=== PATIENT | male | born 1995 | race Two or more races ===

== ENCOUNTER 2022-09-02 05:52 | Emergency (ER) | payer SELFPAY ==
[~2022-09-02] VITALS: Ht 182.9 cm; Wt 85.0 kg
[2022-09-02 05:55] VITALS: BP 141/91
== END 2022-09-02 09:21 | disposition left against medical advice (07) ==
LOC: EDBD → M ED 05:52
DX: Z53.21 Procedure and treatment not carried out due to patient leaving prior to being seen by health care provider (principal)

== ENCOUNTER 2022-09-02 10:40 | Inpatient (IN) | payer MEDICAID, OTHER, SELFPAY ==
[~2022-09-02] VITALS: Ht 182.9 cm; Wt 76.8 kg
[2022-09-02] MEDS ORDERED: LORazepam 2 MG/ML 1ML VIAL IV STA ×2 (11:04→16:12)
[2022-09-02 11:20] LABS: HEMATOCRIT 38.5 % (42.0-52.0); HEMOGLOBIN 13.4 g/dl (13.5-17.5); MEAN CORPUSCULAR HEMOGLOBIN 30.3 pg (27.0-33.0); MEAN CORPUSCULAR HGB CONC 34.8 g/dl (32.0-36.5); MEAN CORPUSCULAR VOLUME 87.1 fl (80.0-96.0); PLATELET COUNT, AUTOMATED 212 10^3/uL (150-450); RED BLOOD COUNT 4.42 10^6/uL (4.30-6.10); WHITE BLOOD COUNT 14.7 10^3/uL (4.0-10.0)
[2022-09-02 11:44] LABS: ETHYL ALCOHOL (ETHANOL) 0.005 % (0.000-0.010)
[2022-09-02 11:45] LABS: ACETAMINOPHEN LEVEL < 2.0 UG/ML (10.0-20.0); SALICYLATE LEVEL < 3.0 MG/DL (<30)
[2022-09-02 11:46] LABS: ALBUMIN 3.5 G/DL (3.2-5.2); ALKALINE PHOSPHATASE 81 U/L (46-116); ALT/SGPT 55 U/L (7.0-40); AST/SGOT 233 U/L (<34); BILIRUBIN,DIRECT 0.3 MG/DL (<0.4); BILIRUBIN,TOTAL 0.9 MG/DL (0.3-1.2); BLOOD UREA NITROGEN 37 MG/DL (9-23); CALCIUM LEVEL 8.5 MG/DL (8.5-10.1); CARBON DIOXIDE LEVEL 24 MMOL/L (20-31); CHLORIDE LEVEL 103 MMOL/L (98-107); CREATININE FOR GFR 1.23 MG/DL (0.70-1.30); GLOMERULAR FILTRATION RATE > 60.0 (>60); GLUCOSE, FASTING 113 MG/DL (60-100); POTASSIUM SERUM 3.9 MMOL/L (3.5-5.1); SODIUM LEVEL 139 MMOL/L (136-145); TOTAL PROTEIN 6.3 G/DL (5.7-8.2)
[2022-09-02 11:48] LABS: THYROID STIMULATING HORMONE 0.481 uIU/ML (0.55-4.78)
[2022-09-02] MEDS ORDERED: NS 1,000 ML IV ONE (11:50)
[2022-09-02] MEDS ORDERED: LIDOCAINE 2% 5ML JELLY UROJET TOP ONE (12:10)
[2022-09-02 13:06] LABS: AMPHETAMINES LEVEL URINE NEGATIVE (NEGATIVE); BARBITURATES URINE NEGATIVE (NEGATIVE); BENZODIAZEPINES URINE NEGATIVE (NEGATIVE); METHADONE URINE NEGATIVE (NEGATIVE); OPIATES URINE NEGATIVE (NEGATIVE); PHENCYCLIDINE URINE NEGATIVE (NEGATIVE)
[2022-09-02 13:07] LABS: CANNABINOIDS URINE POSITIVE (NEGATIVE); COCAINE METABOLITE URINE POSITIVE (NEGATIVE)
[2022-09-02] MEDS ORDERED: HOME MED LIST COMPLETE! XX SCH (13:55)
[2022-09-02] MEDS: NS 1,000 ML IV SCH ×5 (14:00→22:44)
[2022-09-02 15:45] VITALS: BP 105/66
[2022-09-02 16:06] LABS: CPK CREATINE PHOSPHOKINASE > 7800 U/L (46-171)
[2022-09-02] MEDS: HEPARIN SOD (PORCINE) 5000UNITS/ML 1ML VIAL/SYRINGE SC SCH ×2 (16:46→22:00)
[2022-09-02] MEDS ORDERED: HALOPERIDOL 5MG/ML 1ML VIAL IM PRN (17:10)
[2022-09-02 17:15] VITALS: BP 112/72
[2022-09-02 17:44] LABS: MAGNESIUM LEVEL 1.7 MG/DL (1.8-2.4); PHOSPHORUS LEVEL 3.3 MG/DL (2.5-4.9)
[2022-09-02 18:41] LABS: HEPATITIS B CORE ANTIBODY IGM NEGATIVE (NEGATIVE); HEPATITIS B SURFACE ANTIBODY NEGATIVE (POSITIVE); HEPATITIS B SURFACE ANTIGEN NEGATIVE (NEGATIVE)
[2022-09-02] MEDS: LORazepam 2 MG/ML 1ML VIAL IV PRN (19:30)
[2022-09-02] MEDS: HALOPERIDOL 5MG/ML 1ML VIAL IM PRN (19:34)
[2022-09-02 20:00] VITALS: BP 109/56
[2022-09-03] VITALS: BP 110/64
[2022-09-03] MEDS: LORazepam 2 MG/ML 1ML VIAL IV PRN (01:13)
[2022-09-03 04:00] VITALS: BP 112/61
[2022-09-03] MEDS: HEPARIN SOD (PORCINE) 5000UNITS/ML 1ML VIAL/SYRINGE SC SCH ×3 (06:00→22:00)
[2022-09-03] MEDS: HALOPERIDOL 5MG/ML 1ML VIAL IM PRN (06:01)
[2022-09-03] MEDS: NS 1,000 ML IV SCH ×5 (06:08→22:25)
[2022-09-03 08:00] VITALS: BP 124/72
[2022-09-03 08:00] LABS: HEMATOCRIT 36.1 % (42.0-52.0); HEMOGLOBIN 12.1 g/dl (13.5-17.5); MEAN CORPUSCULAR HEMOGLOBIN 30.3 pg (27.0-33.0); MEAN CORPUSCULAR HGB CONC 33.5 g/dl (32.0-36.5); MEAN CORPUSCULAR VOLUME 90.3 fl (80.0-96.0); PLATELET COUNT, AUTOMATED 154 10^3/uL (150-450); WHITE BLOOD COUNT 5.6 10^3/uL (4.0-10.0)
[2022-09-03] MEDS ORDERED: NS 1,000 ML IV ONE (08:05)
[2022-09-03 08:23] LABS: MAGNESIUM LEVEL 1.8 MG/DL (1.8-2.4)
[2022-09-03 08:42] LABS: ALBUMIN 2.6 G/DL (3.2-5.2); ALKALINE PHOSPHATASE 59 U/L (46-116); ALT/SGPT 44 U/L (7.0-40); AST/SGOT 133 U/L (<34); BILIRUBIN,TOTAL 0.6 MG/DL (0.3-1.2); BLOOD UREA NITROGEN 15 MG/DL (9-23); CARBON DIOXIDE LEVEL 22 MMOL/L (20-31); CHLORIDE LEVEL 114 MMOL/L (98-107); CPK CREATINE PHOSPHOKINASE 2284 U/L (46-171); CREATININE FOR GFR 0.77 MG/DL (0.70-1.30); GLOMERULAR FILTRATION RATE > 60.0 (>60); GLUCOSE, FASTING 78 MG/DL (60-100); POTASSIUM SERUM 3.9 MMOL/L (3.5-5.1); SODIUM LEVEL 143 MMOL/L (136-145); TOTAL PROTEIN 4.8 G/DL (5.7-8.2)
[2022-09-03 12:00] VITALS: BP 128/75
[2022-09-03 16:00] VITALS: BP 123/71
[2022-09-03] MEDS ORDERED: KETOROLAC TROMETHAMINE 10 MG TAB PO PRN (18:35)
[2022-09-03 19:53] VITALS: BP 132/80
[2022-09-03] MEDS: SILVER SULFADIAZINE 1% CR 50 GM JAR TOP SCH (22:24)
[2022-09-04] VITALS: BP 114/64
[2022-09-04] MEDS: NS 1,000 ML IV SCH (04:02)
[2022-09-04 04:07] VITALS: BP 115/74
[2022-09-04 05:00] LABS: HEMATOCRIT 35.3 % (42.0-52.0); HEMOGLOBIN 11.9 g/dl (13.5-17.5); MEAN CORPUSCULAR HEMOGLOBIN 30.2 pg (27.0-33.0); MEAN CORPUSCULAR HGB CONC 33.7 g/dl (32.0-36.5); MEAN CORPUSCULAR VOLUME 89.6 fl (80.0-96.0); PLATELET COUNT, AUTOMATED 184 10^3/uL (150-450); RED BLOOD COUNT 3.94 10^6/uL (4.30-6.10); WHITE BLOOD COUNT 7.3 10^3/uL (4.0-10.0)
[2022-09-04 05:13] LABS: CPK CREATINE PHOSPHOKINASE 1009 U/L (46-171)
[2022-09-04 05:14] LABS: ALBUMIN 2.4 G/DL (3.2-5.2); ALKALINE PHOSPHATASE 57 U/L (46-116); ALT/SGPT 39 U/L (7.0-40); AST/SGOT 83 U/L (<34); BILIRUBIN,TOTAL 0.4 MG/DL (0.3-1.2); BLOOD UREA NITROGEN 7 MG/DL (9-23); CALCIUM LEVEL 7.7 MG/DL (8.5-10.1); CARBON DIOXIDE LEVEL 24 MMOL/L (20-31); CHLORIDE LEVEL 109 MMOL/L (98-107); CREATININE FOR GFR 0.68 MG/DL (0.70-1.30); GLOMERULAR FILTRATION RATE > 60.0 (>60); GLUCOSE, FASTING 82 MG/DL (60-100); MAGNESIUM LEVEL 1.8 MG/DL (1.8-2.4); POTASSIUM SERUM 3.4 MMOL/L (3.5-5.1); SODIUM LEVEL 142 MMOL/L (136-145); TOTAL PROTEIN 4.7 G/DL (5.7-8.2)
[2022-09-04] MEDS: HEPARIN SOD (PORCINE) 5000UNITS/ML 1ML VIAL/SYRINGE SC SCH ×2 (05:43→13:31)
[2022-09-04] MEDS ORDERED: POTASSIUM CHLORIDE 10MEQ SR TABLET PO ONE (07:00)
[2022-09-04 08:00] VITALS: BP 121/67
[2022-09-04] MEDS: SILVER SULFADIAZINE 1% CR 50 GM JAR TOP SCH (09:00)
[2022-09-04] MEDS ORDERED: CLOPIDOGREL 75 MG TAB PO ONE (15:00)
[2022-09-04] MEDS: CEPHALEXIN 500 MG CAP PO SCH ×2 (15:02→18:45)
[2022-09-05] MEDS ORDERED: CLOPIDOGREL 75 MG TAB PO SCH (09:00)
[2022-09-05] MEDS ORDERED: CEPH500C PO (17:12)
== END 2022-09-04 19:40 | disposition left against medical advice (07) | DRG 351 ==
LOC: EDBD 10:40 → M ED 10:40 → M ED INP 13:24 → ENRESERV 14:50 → M MSPAV 15:39 → M ICU 17:10
PROVIDERS: ADMIT Internal Medicine; ATTEND Internal Medicine
DX: M62.82 Rhabdomyolysis (principal); G92.8 Other toxic encephalopathy; G25.4 Drug-induced chorea; F14.259 Cocaine dependence with cocaine-induced psychotic disorder, unspecified; F17.200 Nicotine dependence, unspecified, uncomplicated; F12.20 Cannabis dependence, uncomplicated; F11.10 Opioid abuse, uncomplicated; R74.01 Elevation of levels of liver transaminase levels; T33.521A Superficial frostbite of right hand, initial encounter; F15.10 Other stimulant abuse, uncomplicated; E86.0 Dehydration; T33.522A Superficial frostbite of left hand, initial encounter; Y93.89 Activity, other specified; Y99.8 Other external cause status; Y92.9 Unspecified place or not applicable; X31.XXXA Exposure to excessive natural cold, initial encounter; Z59.02 Unsheltered homelessness; E87.6 Hypokalemia

== ENCOUNTER 2022-09-05 14:37 | Emergency (ER) | payer OTHER ==
[~2022-09-05] VITALS: Ht 182.9 cm; Wt 80.2 kg
[2022-09-05 14:38] VITALS: BP 168/110
[2022-09-05] MEDS ORDERED: BACITRACIN OINTMENT 30GM TUBE TOP ONE (16:40)
[2022-09-05] MEDS ORDERED: BOOSTRIX/ADACEL VACCINE (DIPHTH/PERTUSS/ACELL/TETANUS) 0.5ML SYR IM.IMMUN ONE (16:40)
[2022-09-05] MEDS ORDERED: CEPH500C PO (17:12)
== END 2022-09-05 17:21 | disposition left against medical advice (07) ==
LOC: M ED 14:37
DX: T33.521A Superficial frostbite of right hand, initial encounter (principal); T33.522A Superficial frostbite of left hand, initial encounter; I99.8 Other disorder of circulatory system; T23.239A Burn of second degree of unspecified multiple fingers (nail), not including thumb, initial encounter; X31.XXXA Exposure to excessive natural cold, initial encounter; Z53.20 Procedure and treatment not carried out because of patient's decision for unspecified reasons; K58.9 Irritable bowel syndrome, unspecified; K21.9 Gastro-esophageal reflux disease without esophagitis; F17.200 Nicotine dependence, unspecified, uncomplicated

== ENCOUNTER 2022-09-09 05:03 | Inpatient (IN) | payer OTHER ==
[~2022-09-09] VITALS: Ht 175.3 cm; Wt 74.6 kg
[~2022-09-09 05:03] MED LIST: CEPH500C PO
[2022-09-09] MEDS ORDERED: KETOROLAC 30 MG/ML 1ML VIAL IV ONE (05:50)
[2022-09-09 06:33] LABS: BASO # 0.1 10^3/uL (0.0-0.2); BASO % 0.4 % (0.0-1.0); EOS # 0.5 10^3/uL (0.0-0.5); EOS % 2.7 % (0.0-3.0); HEMATOCRIT 44.3 % (42.0-52.0); HEMOGLOBIN 14.6 g/dl (13.5-17.5); LYMPH % 16.6 % (24.0-44.0); MEAN CORPUSCULAR HEMOGLOBIN 29.7 pg (27.0-33.0); MONO # 0.9 10^3/uL (0.0-0.8); MONO % 4.8 % (2.0-8.0); NEUTROPHILS # 13.6 10^3/uL (1.5-8.5); NEUTROPHILS % 74.9 % (36.0-66.0); PLATELET COUNT, AUTOMATED 372 10^3/uL (150-450); RED BLOOD COUNT 4.92 10^6/uL (4.30-6.10); WHITE BLOOD COUNT 18.2 10^3/uL (4.0-10.0)
[2022-09-09] MEDS ORDERED: HALOPERIDOL 5MG/ML 1ML VIAL IM ONE (06:35)
[2022-09-09] MEDS ORDERED: MIDAZOLAM INJ 2MG/2ML VIAL IM ONE (06:35)
[2022-09-09] MEDS ORDERED: diphenhydrAMINE 50MG/ML VIAL IM ONE (06:35)
[2022-09-09 07:24] LABS: BLOOD UREA NITROGEN 20 MG/DL (9-23); CALCIUM LEVEL 8.4 MG/DL (8.5-10.1); CARBON DIOXIDE LEVEL 28 MMOL/L (20-31); CHLORIDE LEVEL 101 MMOL/L (98-107); GLOMERULAR FILTRATION RATE > 60.0 (>60); GLUCOSE, FASTING 96 MG/DL (60-100); POTASSIUM SERUM 5.5 MMOL/L (3.5-5.1); SODIUM LEVEL 137 MMOL/L (136-145)
[2022-09-09 07:36] LABS: ERYTHROCYTE SEDIMENTATION RATE 26 mm/hr (0-15)
[2022-09-09] MEDS ORDERED: VANCOMYCIN HCL 1,500 MG in NS 250 ML IV ONE (08:30)
[2022-09-09] MEDS ORDERED: PIPERACILLIN/TAZOBACTAM SOD 3.375 GM in D5W MINI-BAG PLUS 50 ML IV ONE (08:30)
[2022-09-09] MEDS ORDERED: CEPH500C PO (08:58)
[2022-09-09] MEDS ORDERED: HOME MED LIST COMPLETE! XX SCH (09:20)
[2022-09-09] MEDS ORDERED: SILVER SULFADIAZINE 1% CR 50 GM JAR TOP ONE (09:25)
[2022-09-09] MEDS ORDERED: VANCOMYCIN HCL 750 MG, VIAL MATE ADAPTER 1 EACH in D5W 250 ML IV ONE ×2 (10:00→11:00)
[2022-09-09] MEDS ORDERED: VANCOMYCIN HCL 1,000 MG, VIAL MATE ADAPTER 1 EACH in NS 250 ML IV SCH (10:40)
[2022-09-09 11:00] LABS: ETHYL ALCOHOL (ETHANOL) 0.004 % (0.000-0.010)
[2022-09-09 11:02] LABS: ACETAMINOPHEN LEVEL < 2.0 UG/ML (10.0-20.0); SALICYLATE LEVEL < 3.0 MG/DL (<30)
[2022-09-09 11:05] LABS: ALKALINE PHOSPHATASE 74 U/L (46-116); ALT/SGPT 50 U/L (7.0-40); AST/SGOT 106 U/L (<34); BILIRUBIN,DIRECT 0.2 MG/DL (<0.4); BILIRUBIN,TOTAL 0.4 MG/DL (0.3-1.2); THYROID STIMULATING HORMONE 0.843 uIU/ML (0.55-4.78); TOTAL PROTEIN 5.9 G/DL (5.7-8.2)
[2022-09-09 11:10] LABS: RSV AMPLIFICATION NEGATIVE (NEGATIVE)
[2022-09-09] MEDS: ENOXAPARIN 40MG/0.4ML SYRINGE (J1650 PER 10MG) SC SCH (11:32)
[2022-09-09 12:09] LABS: CPK CREATINE PHOSPHOKINASE 2515 U/L (46-171)
[2022-09-09 12:32] VITALS: BP 119/74
[2022-09-09 14:00] VITALS: BP 123/76
[2022-09-09] MEDS ORDERED: NS 1,000 ML IV ONE (14:35)
[2022-09-09] MEDS ORDERED: OLANZapine ORAL DISINTEGRATING TAB 5MG PO PRN (14:35)
[2022-09-09] MEDS: PIPERACILLIN/TAZOBACTAM SOD 3.375 GM in D5W MINI-BAG PLUS 50 ML IV SCH ×2 (15:28→21:07)
[2022-09-09] MEDS: VANCOMYCIN HCL 750 MG, VIAL MATE ADAPTER 1 EACH in D5W 250 ML IV SCH (17:45)
[2022-09-09 18:30] VITALS: BP 123/76
[2022-09-09] MEDS: VANCOMYCIN HCL 500 MG in D5W MINI-BAG PLUS 100 ML IV SCH (20:05)
[2022-09-09 21:50] VITALS: BP 117/63
[2022-09-10] MEDS ORDERED: VANCOMYCIN HCL 750 MG, VIAL MATE ADAPTER 1 EACH in D5W 250 ML IV SCH ×3
[2022-09-10] MEDS ORDERED: VANCOMYCIN HCL 500 MG in D5W MINI-BAG PLUS 100 ML IV SCH ×4 (01:00)
[2022-09-10] MEDS: VANCOMYCIN HCL 750 MG, VIAL MATE ADAPTER 1 EACH in D5W 250 ML IV SCH ×3 (01:56→12:18)
[2022-09-10] MEDS: VANCOMYCIN HCL 500 MG in D5W MINI-BAG PLUS 100 ML IV SCH ×2 (03:07→12:18)
[2022-09-10] MEDS: PIPERACILLIN/TAZOBACTAM SOD 3.375 GM in D5W MINI-BAG PLUS 50 ML IV SCH ×4 (04:02→22:13)
[2022-09-10] MEDS: MORPHINE 2 MG/ML 1ML VIAL IV PRN ×4 (04:02→23:44)
[2022-09-10 05:30] VITALS: BP 119/65
[2022-09-10 06:35] LABS: BASO % 0.4 % (0.0-1.0); EOS # 0.3 10^3/uL (0.0-0.5); EOS % 3.2 % (0.0-3.0); HEMATOCRIT 40.3 % (42.0-52.0); HEMOGLOBIN 13.3 g/dl (13.5-17.5); LYMPH # 1.5 10^3/uL (1.5-5.0); LYMPH % 17.2 % (24.0-44.0); MEAN CORPUSCULAR HEMOGLOBIN 29.7 pg (27.0-33.0); MONO # 0.3 10^3/uL (0.0-0.8); MONO % 3.6 % (2.0-8.0); NEUTROPHILS # 6.4 10^3/uL (1.5-8.5); NEUTROPHILS % 75.1 % (36.0-66.0); PLATELET COUNT, AUTOMATED 323 10^3/uL (150-450); RED BLOOD COUNT 4.48 10^6/uL (4.30-6.10); WHITE BLOOD COUNT 8.6 10^3/uL (4.0-10.0)
[2022-09-10 07:20] LABS: BLOOD UREA NITROGEN 11 MG/DL (9-23); CALCIUM LEVEL 7.8 MG/DL (8.5-10.1); CARBON DIOXIDE LEVEL 27 MMOL/L (20-31); CHLORIDE LEVEL 106 MMOL/L (98-107); CREATININE FOR GFR 0.94 MG/DL (0.70-1.30); GLOMERULAR FILTRATION RATE > 60.0 (>60); GLUCOSE, FASTING 114 MG/DL (60-100); POTASSIUM SERUM 3.7 MMOL/L (3.5-5.1); SODIUM LEVEL 139 MMOL/L (136-145)
[2022-09-10] MEDS: ENOXAPARIN 40MG/0.4ML SYRINGE (J1650 PER 10MG) SC SCH ×3 (09:00→09:25)
[2022-09-10] MEDS: SILVER SULFADIAZINE 1% CR 50 GM JAR TOP SCH (09:19)
[2022-09-10] MEDS ORDERED: SILV50CR TOP (12:34)
[2022-09-10] MEDS ORDERED: CEFU50TA PO (12:34)
[2022-09-10 14:00] VITALS: BP 136/81
[2022-09-10 20:40] VITALS: BP 137/80
[2022-09-10] MEDS ORDERED: KETOROLAC 30 MG/ML 1ML VIAL IV PRN (22:50)
[2022-09-10] MEDS ORDERED: ACETAMINOPHEN TAB 650MG DOSE (2X325MG) PO PRN (22:50)
[2022-09-11] MEDS ORDERED: VANCOMYCIN HCL 500 MG in D5W MINI-BAG PLUS 100 ML IV SCH (01:00)
[2022-09-11 04:50] VITALS: BP 137/79
[2022-09-11] MEDS: PIPERACILLIN/TAZOBACTAM SOD 3.375 GM in D5W MINI-BAG PLUS 50 ML IV SCH ×3 (04:50→15:18)
[2022-09-11] MEDS: ENOXAPARIN 40MG/0.4ML SYRINGE (J1650 PER 10MG) SC SCH ×2 (09:00→09:19)
[2022-09-11] MEDS: SILVER SULFADIAZINE 1% CR 50 GM JAR TOP SCH (09:20)
[2022-09-11 11:19] LABS: BASO % 0.4 % (0.0-1.0); EOS # 0.1 10^3/uL (0.0-0.5); HEMATOCRIT 40.6 % (42.0-52.0); HEMOGLOBIN 13.4 g/dl (13.5-17.5); LYMPH # 1.1 10^3/uL (1.5-5.0); LYMPH % 11.5 % (24.0-44.0); MEAN CORPUSCULAR HEMOGLOBIN 29.7 pg (27.0-33.0); MONO # 0.3 10^3/uL (0.0-0.8); MONO % 3.1 % (2.0-8.0); NEUTROPHILS # 8.1 10^3/uL (1.5-8.5); NEUTROPHILS % 83.5 % (36.0-66.0); PLATELET COUNT, AUTOMATED 359 10^3/uL (150-450); RED BLOOD COUNT 4.51 10^6/uL (4.30-6.10); WHITE BLOOD COUNT 9.7 10^3/uL (4.0-10.0)
[2022-09-11 11:45] LABS: VANCOMYCIN LEVEL TROUGH 10.7 UG/ML (10.0-20.0)
[2022-09-11 11:46] LABS: BLOOD UREA NITROGEN 13 MG/DL (9-23); CALCIUM LEVEL 8.8 MG/DL (8.5-10.1); CARBON DIOXIDE LEVEL 28 MMOL/L (20-31); CHLORIDE LEVEL 109 MMOL/L (98-107); CREATININE FOR GFR 0.88 MG/DL (0.70-1.30); GLOMERULAR FILTRATION RATE > 60.0 (>60); GLUCOSE, FASTING 99 MG/DL (60-100); POTASSIUM SERUM 4.1 MMOL/L (3.5-5.1); SODIUM LEVEL 140 MMOL/L (136-145)
[2022-09-11 11:49] LABS: CPK CREATINE PHOSPHOKINASE 383 U/L (46-171)
[2022-09-11] MEDS ORDERED: VANCOMYCIN HCL 750 MG, VIAL MATE ADAPTER 1 EACH in D5W 250 ML IV SCH ×5 (12:00→13:00)
[2022-09-11] MEDS: MORPHINE 2 MG/ML 1ML VIAL IV PRN (12:20)
[2022-09-11 14:00] VITALS: BP 136/77
== END 2022-09-11 18:32 | disposition left against medical advice (07) | DRG 815 ==
LOC: M ED 05:03 → M ED INP 10:40 → ENRESERV 11:48 → M MSPAV 12:22
PROVIDERS: ADMIT Internal Medicine Nephrology; ATTEND Internal Medicine Nephrology
DX: T34.532A Frostbite with tissue necrosis of left finger(s), initial encounter (principal); I96 Gangrene, not elsewhere classified; M62.82 Rhabdomyolysis; R45.851 Suicidal ideations; F14.159 Cocaine abuse with cocaine-induced psychotic disorder, unspecified; F11.159 Opioid abuse with opioid-induced psychotic disorder, unspecified; F12.159 Cannabis abuse with psychotic disorder, unspecified; K58.9 Irritable bowel syndrome, unspecified; K21.9 Gastro-esophageal reflux disease without esophagitis; F32.A Depression, unspecified; F15.10 Other stimulant abuse, uncomplicated; S03.01 Dislocation of jaw, right side; T33.522A Superficial frostbite of left hand, initial encounter; Y93.89 Activity, other specified; Y99.8 Other external cause status; Y92.9 Unspecified place or not applicable; X31.XXXA Exposure to excessive natural cold, initial encounter; Z59.02 Unsheltered homelessness